=== PATIENT | female | born 1995 | race African-American/Black ===

== ENCOUNTER 2019-04-28 15:34 | Emergency (ER) | payer OTHER ==
[~2019-04-28] VITALS: Ht 160 cm; Wt 62.6 kg
--- NOTE | 2019-04-28 16:20 | NUR ---
DR JACKSON AT THE BEDSIDE FOR MSE.
[2019-04-28 16:27] VITALS: BP 106/58
== END 2019-04-28 16:27 | disposition home or self-care (01) ==
LOC: ER 15:34
DX: J02.8 Acute pharyngitis due to other specified organisms (principal); B97.89 Other viral agents as the cause of diseases classified elsewhere; Z88.5 Allergy status to narcotic agent
CPT/HCPCS: A4663